=== PATIENT | male | born 1995 | race Caucasian/White ===

== ENCOUNTER 2018-01-06 20:42 | Outpatient (CLI) | payer OTHER | END 2018-01-06 20:43 | disposition home or self-care (01) | LOC: LAB 20:42 | PROVIDERS: ATTEND Pathology Blood Banking & Transfusion Medicine | DX: Z01.89 Encounter for other specified special examinations (principal) | CPT/HCPCS: 36415 ==

== ENCOUNTER 2022-06-13 22:25 | Outpatient (CLI) | payer MEDICAID | END 2022-06-13 23:59 | disposition critical access hospital (66) | LOC: EMS 22:25 | DX: R10.31 Right lower quadrant pain (principal); R32 Unspecified urinary incontinence | CPT/HCPCS: A0425; A0429; A0999 ==

== ENCOUNTER 2022-06-13 22:48 | Emergency (ER) | payer MEDICAID ==
[2022-06-13 23:07] LABS: BILIRUBIN,URINE NEGATIVE (NEGATIVE); CLARITY,URINE CLEAR (CLEAR); GLUCOSE, URINE (UA) NEGATIVE (NEGATIVE); KETONES,URINE (UA) NEGATIVE (NEGATIVE); LEUKOCYTE ESTERASE, URINE NEGATIVE (NEGATIVE); NITRITE,URINE NEGATIVE (NEGATIVE); OCCULT BLOOD,URINE NEGATIVE (NEGATIVE); PROTEIN,URINE NEGATIVE (NEGATIVE); UROBILINOGEN,URINE 0.2 (NORMAL) E.U./dL (NORMAL)
[2022-06-13 23:13] LABS: BASOPHILS % (AUTO) 0.4 %; EOSINOPHILS # (AUTO) 0.3 10^3/uL (0.0-0.7); EOSINOPHILS % (AUTO) 3.9 %; HCT - HEMATOCRIT 44.6 % (42.0-52.0); HGB - HEMOGLOBIN 15.1 g/dL (14.0-18.0); LYMPHOCYTES # (AUTO) 2.2 10^3/uL (1.5-3.5); LYMPHOCYTES % (AUTO) 29.5 %; MEAN CORPUSCULAR HGB CONC 33.9 g/dL (32.0-36.0); MEAN CORPUSCULAR VOLUME 91.6 fL (80.0-94.0); MEAN PLATELET VOLUME 10.7 fL (7.4-11.4); MONOCYTES # (AUTO) 0.6 10^3/uL (0.0-1.0); MONOCYTES % (AUTO) 7.5 %; NEUTROPHILS # (AUTO) 4.4 10^3/uL (1.5-6.6); NEUTROPHILS % (AUTO) 58.6 %; PLT - PLATELET COUNT 223 10^3/uL (130-450); RED BLOOD COUNT 4.87 10^6/uL (4.70-6.10); RED CELL DISTRIBUTION WIDTH 12.2 % (12.0-15.0); WHITE BLOOD COUNT 7.5 x10^3/uL (4.8-10.8)
[2022-06-13 23:26] LABS: ALBUMIN 4.6 g/dL (3.2-5.5); ALBUMIN/GLOBULIN RATIO 1.6 (1.0-2.2); BILIRUBIN,TOTAL 0.5 mg/dL (0.2-1.0); CALCIUM 9.2 mg/dL (8.5-10.3); CREATININE 0.9 mg/dL (0.6-1.2); POTASSIUM 3.6 mmol/L (3.5-5.0); TOTAL PROTEIN 7.5 g/dL (6.7-8.2)
[2022-06-14 01:32] VITALS: BP 121/78
--- NOTE | 2022-06-14 01:52 | ED Physician Documentation ---
History of Present Illness - Stated complaint Stated Complaint: BLADDER PX - Chief complaint Chief Complaint: Abd Pain - History obtained from History obtained from: Patient - Additonal information Additional information: patient c/o three episodes of urinary incontinence, occurring over past several week. He says two episodes have occurred while asleep but tonight while he was at home, at rest and awake, he had his most recent episode of urinary incontinence. Has not seen a doctor for this problem. He denies fever, denies back pain, denies numbness, denies weakness. Denies urinary frequency, denies dysuria. Denies penile d/c. Review of Systems Constitutional: denies: Fever GI: denies: Abdominal Pain, Nausea, Vomiting, Constipation, Diarrhea : reports: Incontinent (three episodes over past several weeks, most recently this evening). denies: Dysuria, Frequency, Hesitancy, Unable to Void Musculoskeletal: denies: Neck pain, Back pain Neurologic: denies: Generalized weakness, Focal weakness, Numbness, Headache PD PAST MEDICAL HISTORY - Past Medical History Past Medical History: No - Past Surgical History Past Surgical History: No - Allergies Allergies/Adverse Reactions: Allergies Allergy/AdvReac Type Severity Reaction Status Date / Time No Known Drug Allergies Allergy Verified 06/13/22 22:46 - Social History Does the pt smoke?: No Smoking Status: Never smoker Does the pt drink ETOH?: No Does the pt have substance abuse?: No - Immunizations Immunizations are current?: Yes - POLST Patient has POLST: No PD ED PE NORMAL - Vitals Vital signs reviewed: Yes - General General: Alert and oriented X 3, No acute distress, Well developed/nourished - Cardiac Cardiac: RRR, No murmur - Respiratory Respiratory: No respiratory distress, Clear bilaterally - Abdomen Abdomen: Normal bowel sounds, Soft, Non tender, Non distended - Back Back: No spinal TTP - Derm Derm: Normal color, Warm and dry - Neuro Neuro: Alert and oriented X 3, No motor deficit (5/5 bilateral dorsi/plantarflexion), No sensory deficit (LTS intact BLE) Results - Vitals Vitals: Oxygen O2 Source Room air - Labs Labs: Laboratory Tests 06/13/22 06/13/22 06/13/22 23:02 23:09 23:09 WBC 7.5 RBC 4.87 Hgb 15.1 Hct 44.6 MCV 91.6 MCH 31.0 MCHC 33.9 RDW 12.2 Plt Count 223 MPV 10.7 Neut # (Auto) 4.4 Lymph # (Auto) 2.2 [place] # (Auto) 0.6 Eos # (Auto) 0.3 Baso # (Auto) 0.0 Absolute Nucleated RBC 0.00 Nucleated RBC % 0.0 Sodium 141 Potassium 3.6 Chloride 106 Carbon Dioxide 26 Anion Gap 9.0 BUN 13 Creatinine 0.9 Estimated GFR (MDRD) 103 Glucose 109 H Calcium 9.2 Total Bilirubin 0.5 AST 27 ALT 35 Alkaline Phosphatase 66 Total Protein 7.5 Albumin 4.6 Globulin 2.9 Albumin/Globulin Ratio 1.6 Lipase 33 Urine Color YELLOW Urine Clarity CLEAR Urine pH 7.0 Ur Specific [place] 1.020 Urine Protein NEGATIVE Urine Glucose (UA) NEGATIVE Urine Ketones NEGATIVE Urine Occult Blood NEGATIVE Urine Nitrite NEGATIVE Urine Bilirubin NEGATIVE Urine Urobilinogen 0.2 (NORMAL) Ur Leukocyte Esterase NEGATIVE Ur Microscopic Review NOT INDICATED Urine Culture Comments NOT INDICATED PD Medical Decision Making - ED course Complexity details: reviewed results, re-evaluated patient, considered differential, d/w patient ED course: Tests ordered and results reviewed by me: CBC, ER abdominal panel, UA. The results of these tests are entirely normal (except insignificant finding of glucose 109). Cause of his urinary incontinence is not apparent at this time, but further emergent testing is not indicated, as it is unlikely to achieve or suggest a diagnosis and/or indicate or suggest a specific treatment. I reviewed results with patient and explained that certainly it is not normal for a 27 year-old to have urinary incontinence , and that despite reassuring tests tonight, he needs to pursue follow up with a urologist. He says he does not have one, and thus I recommend he contact his PMD to ask about the referral process. Consideration regarding differential diagnosis was given to multiple sclerosis (unlikely, given no previous history of other suspicious neuralgic complaints such as visual changes, weakens, loss of balance, but still would be a consideration , particularly if , over time, other neurologic signs/symptoms develop). No fever, no back pain, no midline back tenderness, no saddle anesthesia, no loss of bowel control; these would suggest spinal cord impingement such as with spinal epidural abscess , cauda aquina syndrome. Departure - Departure Disposition: 01 Home, Self Care Clinical Impression: Urinary incontinence Qualifiers: Urinary Incontinence type: unspecified incontinence Qualified Code(s): R32 - Unspecified urinary incontinence Condition: Good Instructions: ED Bladder Overactive Male Comments: There were no abnormalities on the test performed tonight; the test performed included blood tests as well as a urinalysis. Your kidney function tests were normal, and there is no evidence of any infection in the urine. The cause of your loss of control of your bladder is not apparent at this time. As we discussed, you should follow-up for this problem, as you might benefit from referral to a specialist (urology) and further tests. You will need to establish with a primary care provider so that you can then be referred at your primary care provider's discretion. Discharge Date/Time: 06/14/22 02:22
== END 2022-06-14 02:22 | disposition home or self-care (01) ==
LOC: ED 22:48
DX: R32 Unspecified urinary incontinence (principal)
CPT/HCPCS: 36415; 80053; 81001; 81003; 83690; 85025; 87086; 99283

== ENCOUNTER 2022-11-03 12:52 | Emergency (ER) | payer MEDICAID ==
--- NOTE | 2022-11-03 14:44 | ED Physician Documentation ---
History of Present Illness - Stated complaint Stated Complaint: BLURRY VISION - Chief complaint Chief Complaint: Neuro - History obtained from History obtained from: Patient - Additonal information Additional information: The patient comes to the emergency department with chief complaint of blurred vision for about a year. He states that sometimes he gets excessive tearing also. He states his visual problems seem to come and go but are there most of the time. He denies any headaches or neurologic deficits. He states that he has not seen an eye surgeon for a formal eye exam. No other complaints at this time. No allergy symptoms. Patient has not had a runny nose. PD PAST MEDICAL HISTORY - Past Surgical History Past Surgical History: No - Allergies Allergies/Adverse Reactions: Allergies Allergy/AdvReac Type Severity Reaction Status Date / Time No Known Drug Allergies Allergy Verified 11/03/22 13:17 - Social History Does the pt smoke?: No Smoking Status: Never smoker Does the pt drink ETOH?: No Does the pt have substance abuse?: No - Immunizations Immunizations are current?: Yes - POLST Patient has POLST: No PD ED PE NORMAL - Vitals Vital signs reviewed: Yes - General General: Alert and oriented X 3, No acute distress, Well developed/nourished - HEENT HEENT: Atraumatic, PERRL, EOMI, Moist mucous membranes, Other (Fluorescein exam normal. No conjunctival injection. No corneal haziness. Visual acuity OD: 20/50; OS: 20/50; OU: 20/50.) - Respiratory Respiratory: No respiratory distress - Derm Derm: Warm and dry - Extremities Extremities: No deformity - Neuro Neuro: Alert and oriented X 3 - Psych Psych: Normal mood, Normal affect Results - Vitals Vitals: Vital Signs - 24 hr 11/03/22 13:14 Temperature 36.7 C Heart Rate 62 Respiratory 20 Rate Blood Pressure 144/68 H O2 Saturation 100 Oxygen O2 Source Room air PD Medical Decision Making - ED course Complexity details: considered differential, d/w patient ED course: I discussed with the patient that his longstanding visual problems are best sorted out by an eye surgeon such as an quill skinner or printing pressman. I have assured the patient that I do not find any evidence at this point in time of a serious condition causing his symptoms. I have given the [place] and have advised patient to call as soon as possible to set up a follow-up appointment. We have discussed the usual indications for return. Departure - Departure Disposition: 01 Home, Self Care Clinical Impression: Visual changes Condition: Stable Instructions: ED Blurred Vision Follow-Up: Ramon Cano MD [Provider Admit Priv/Credential] - Comments: In emergency department eye exam reveals no serious problems with your eyes. However, your vision as far as looking far away is somewhat weak, and you most likely need glasses. However, you need to have a formal eye exam done by an eye surgeon. Please make an appointment as soon as possible to follow-up and have this done. No emergent treatment is indicated today. Forms: PCP List
[2022-11-03 15:00] VITALS: BP 135/65; O2SAT 99
== END 2022-11-03 14:57 | disposition home or self-care (01) ==
LOC: ED 12:52
DX: H53.8 Other visual disturbances (principal)
CPT/HCPCS: 99282; 99283

== ENCOUNTER 2023-02-08 02:59 | Outpatient (CLI) | payer MEDICAID | END 2023-02-08 03:00 | disposition home or self-care (01) | LOC: EMS 02:59 | DX: R68.89 Other general symptoms and signs (principal); X31.XXXA Exposure to excessive natural cold, initial encounter; Z59.02 Unsheltered homelessness | CPT/HCPCS: A0425; A0429; A0999 ==

== ENCOUNTER 2023-02-08 03:15 | Emergency (ER) | payer MEDICAID ==
--- NOTE | 2023-02-08 03:26 | ED Physician Documentation ---
History of Present Illness - Stated complaint Stated Complaint: WANT MEDICAL EVAL - History obtained from History obtained from: Patient, EMS - Additonal information Additional information: 27yM bibems after police found him loitering in a [employer] lobby. patient stated he needs medical evaluation and needs to be taken to a [facility]. he is refusing evaluation here in the ED. history limited by patient noncompliance PD PAST MEDICAL HISTORY - Past Surgical History Past Surgical History: No - Allergies Allergies/Adverse Reactions: Allergies Allergy/AdvReac Type Severity Reaction Status Date / Time No Known Drug Allergies Allergy Verified 11/03/22 13:17 - Social History Does the pt smoke?: No Smoking Status: Never smoker Does the pt drink ETOH?: No Does the pt have substance abuse?: No - Immunizations Immunizations are current?: Yes - POLST Patient has POLST: No PD ED PE NORMAL - Vitals Vital signs reviewed: Yes - General General: Alert and oriented X 3, No acute distress, Well developed/nourished - HEENT HEENT: Atraumatic - Neck Neck: Thyroid normal - Cardiac Cardiac: Other (patient refused heart and lung exam) - Abdomen Abdomen: Other (patient refused exam) - Derm Derm: Normal color, Warm and dry, No rash - Extremities Extremities: No deformity, Other (ambulatory with normal gait) - Neuro Neuro: Alert and oriented X 3 Results - Vitals Vitals: Oxygen O2 Source Room air PD Medical Decision Making - ED course ED course: 27yM presents to the ED, bibems for medical evaluation after police were called to [employer] lobby where it was reported patient was loitering. patient verbally abusive in the ED, refusing medical examination. EMS state his vital signs were normal on scene and en route. patient well appearing in NAD without any apparent complaints. plan to discharge and offered to evaluate him again anytime if he changes his mind. return precautions given. pcp list provided. Departure - Departure Disposition: 01 Home, Self Care Clinical Impression: Encounter for medical screening examination Condition: Good Comments: You were seen in the emergency department for medical evaluation. Your vital signs with ems were normal. Though you refused care, you can come to the ED again anytime for further evaluation. Please follow-up with your primary care provider and return to the emergency department if you have any new or worsening symptoms or other concerns. Forms: PCP List
== END 2023-02-08 03:50 | disposition home or self-care (01) ==
LOC: EDUNIT# → ED 03:15
DX: Z13.9 Encounter for screening, unspecified (principal)
CPT/HCPCS: 99282; 99283

== ENCOUNTER 2023-02-21 22:50 | Emergency (ER) | payer MEDICAID ==
--- NOTE | 2023-02-22 01:47 | ED Physician Documentation ---
PD HPI MHE - Stated complaint Stated Complaint: ANXIETY/AMS - Chief complaint Chief Complaint: MHE - History obtained from History obtained from: Patient - Treatment prior to arrival Treatment prior to arrival: 27yM with pmh anxiety p/w request for prescription for xanax or marijuana pills. patient denies si/hi/avh. PD PAST MEDICAL HISTORY - Past Medical History Past Medical History: No Respiratory: None Neuro: None Endocrine/Autoimmune: None GI: None Derm: None - Past Surgical History Past Surgical History: Yes - Present Medications Home Medications: Ambulatory Orders Medication Instructions Recorded Confirmed hydrOXYzine HCL [Hydroxyzine HCl] 25 mg PO Q6H PRN #20 tablet 02/22/23 - Allergies Allergies/Adverse Reactions: Allergies Allergy/AdvReac Type Severity Reaction Status Date / Time No Known Drug Allergies Allergy Verified 02/21/23 23:18 - Social History Does the pt smoke?: Yes Smoking Status: Current every day smoker Does the pt drink ETOH?: Yes Does the pt have substance abuse?: No Substance Use and Type: Marijuana PD ED PE NORMAL - Vitals Vital signs reviewed: Yes - General General: Alert and oriented X 3, No acute distress, Well developed/nourished - HEENT HEENT: Atraumatic, PERRL, EOMI - Neck Neck: Supple, no meningeal sign, No adenopathy - Derm Derm: Normal color, Warm and dry - Neuro Neuro: Alert and oriented X 3 - Psych Psych: Other (anxious affect and mood) Results - Vitals Vitals: Vital Signs - 24 hr 02/21/23 23:18 Temperature 36.8 C Heart Rate 70 Respiratory 16 Rate Blood Pressure 129/94 H O2 Saturation 100 Oxygen O2 Source Room air PD Medical Decision Making - ED course ED course: 27yM presents requesting antianxiety medication, specifically requesting prescriptions for ativan and cannabis edibles. advised patient that I can prescribe atarax and he should follow up with a pcp or outpatient behavioral health for further management. patient denies si/hi/avh and is aox4 therefore plan to dc with return precautions. Departure - Departure Disposition: 01 Home, Self Care Clinical Impression: Anxiety Condition: Good Instructions: ED Stress React Prescriptions: hydrOXYzine HCL [Hydroxyzine HCl] 25 mg PO Q6H PRN #20 tablet PRN Reason: Anxiety Comments: You were seen in the emergency department for anxiety. Please follow up with outpatient behavioral health or with a primary care provider (provider list enclosed). I cannot prescribe marijuana or xanax or other schedule 1 substances from the emergency department. However, a prescription for atarax (hydroxyzine) was sent electronically to your pharmacy. You can take this as needed for anxiety. Please return to the emergency department if you have any new or worsening symptoms or other concerns.
[2023-02-22 01:59] VITALS: BP 123/83; O2SAT 98
== END 2023-02-22 01:57 | disposition home or self-care (01) ==
LOC: ED 22:50 → MERGE 22:50 → ED 02-22 01:57
DX: F41.9 Anxiety disorder, unspecified (principal); F17.200 Nicotine dependence, unspecified, uncomplicated
CPT/HCPCS: 99282; 99283